=== PATIENT | male | born 1990 | race African-American/Black ===

== ENCOUNTER 2016-12-12 10:24 | Day surgery (SDC) | payer OTHER ==
[~2016-12-12] VITALS: Wt 60.0 kg
[2016-12-12] VITALS (9 sets, daily range): BP systolic 122–142; BP diastolic 73–90; PULSE 82–108; RESP 12–20
[~2016-12-12 10:24] MED LIST: SUCCINYLCHOLINE CHLORIDE 100 MG/5 ML SYG IV ONE
[2016-12-12] MEDS ORDERED: morphine 4 MG/ML VIAL IV STA (10:48)
[2016-12-12] MEDS ORDERED: ONDANSETRON 4 MG INJ IV STA (10:48)
[2016-12-12 11:10] LABS: URINE BLOOD (Dip) POC Negative (NEGATIVE)
[2016-12-12 11:36] LABS: ALBUMIN 4.8 g/dl (3.3-4.9); POTASSIUM 3.6 mmol/L (3.5-5.1)
[2016-12-12 11:38] LABS: CREATININE 0.82 mg/dl (0.61-1.24)
[2016-12-12 11:39] LABS: ALBUMIN/GLOBULIN RATIO 1.23; BASOPHILS % 0.4 % (0.0-2.0); BILIRUBIN,INDIRECT 0.4 mg/dl (0-1.1); BILIRUBIN,TOTAL 0.4 mg/dl (0.2-1.3); CALCIUM 9.7 mg/dl (8.4-10.2); EOSINOPHILS # 0.1 10^3/ul (0.0-0.5); EOSINOPHILS % 1.3 % (0.0-7.0); HEMATOCRIT 46.9 % (42.0-52.0); HEMOGLOBIN 15.8 g/dl (14.0-18.0); LYMPHOCYTES # 1.2 10^3/ul (0.8-2.9); LYMPHOCYTES % 18.6 % (15.0-51.0); MEAN CORPUSCULAR HEMOGLOBIN 29.7 pg (29.0-33.0); MEAN CORPUSCULAR HGB CONC 33.6 g/dl (32.0-37.0); MEAN CORPUSCULAR VOLUME 88.2 fl (82.0-101.0); MEAN PLATELET VOLUME 8.6 fl (7.4-10.4); MONOCYTE # 0.4 10^3/ul (0.3-0.9); NEUTROPHIL # 4.9 10^3/ul (1.6-7.5); NEUTROPHILS % 73.7 % (39.0-77.0); PLATELET COUNT 251 10^3/UL (140-440); RED BLOOD COUNT 5.32 10^6/ul (4.70-6.10); RED CELL DISTRIBUTION WIDTH 12.6 % (11.5-14.5); TOTAL PROTEIN 8.7 g/dl (6.1-8.1); UNCORRECTED WBC 6.7 10^3/ul (4.8-10.8); WHITE BLOOD COUNT 6.7 10^3/ul (4.8-10.8)
[2016-12-12 11:46] LABS: CONDITION 1
--- NOTE | 2016-12-12 12:04 | RADRPT ---
PROCEDURE: US Scrotal CLINICAL INDICATION: Right testicular pain TECHNIQUE: Images were taken during real time interrogation of the scrotum. Color Doppler was also performed. COMPARISON: None FINDINGS: Right Testicle: Is normal in size measuring 4.5 x 2.7 x 2.7 cm No mass is identified. The echotexture is normal. There is lack of vascular flow on color and spectral Doppler within the right testicle. There is a trace right hydrocele. No varicocele is evident. Left testicle: Is normal in size measuring 4.1 x 2.4 x 2.0 cm No mass is identified and The echotexture appears normal. There is normal vascular flow on color Doppler. There is no hydrocele. No varicocele is identified. Right Epidydemus: There is a 5 mm cyst within the right epididymal head. Left Epedidymus: Appears normal. IMPRESSION: 1. Lack of vascular flow within the right testicle is highly suggestive of testicular torsion. Ther e is a trace right hydrocele but the right testicle otherwise appears normal in size with no focal l esion. 2. Normal appearing left testicle. 3. 5 mm cyst seen within the right epididymal head Findings of right testicular torsion were telephoned by Otilio Isaacs MD to MICHAEL Ureña 12/12/2016 at 1200 hours. Physician Kirsty Date Time Electronically viewed and signed by Physician Kirsty on 12/12/2016 12:04 /
--- NOTE | 2016-12-12 12:06 | QN ---
Documentation Comment My independent concise history is right-sided testicle pain since this morning. My pertinent physical exam findings are right sided testicle swelling with horizontal lie and tenderness to palpation. The plan is consultation with the on-call urologist Dr. Bey and admission to the hospital. The patient will likely need surgical intervention. ALEXEY JUAREZ MD Dec 12, 2016 12:06
--- NOTE | 2016-12-12 12:23 | ERA ---
DATE OF SERVICE: 12/12/2016 HISTORY OF PRESENT ILLNESS: The patient is a 26-year-old male complaining of right testicular pain since this morning. Patient states he woke up this morning with some umbilical pain that has been worsening and he has noted some swelling and erythema to his right testicle. He had a torsion as a teenager, his pain feels similar. He has no pain with urination and no history of STDs. No new sexual partners. No penile discharge. No vomiting. PAST MEDICAL HISTORY: Denies any medical problems. ALLERGIES TO MEDICATIONS: DENIES. SURGICAL HISTORY: Denies. SOCIAL HISTORY: Denies. REVIEW OF SYSTEMS: A 12-point review of systems was done. Refer to HPI for positives, all other systems negative. PHYSICAL EXAMINATION: VITAL SIGNS: Temperature is 97, pulse 64, blood pressure is 136/91, respiratory 20, O2 saturation 100% on room air. Pain intensity 9/10. GENERAL: The patient is well-appearing, well-nourished, no acute distress. HEENT: Atraumatic. Conjunctivae are pink. Pupils equal, round, and reactive to light. There is no scleral icterus. Tympanic membranes clear bilaterally. Oropharynx clear. No nystagmus or photophobia. CHEST: Clear to auscultation bilaterally. There are no rales, wheezes or rhonchi. HEART: Regular rate and rhythm. No murmurs, clicks, rubs or gallops. No S3 or S4. ABDOMEN: Soft, nontender and nondistended. Good bowel sounds. No rebound or guarding. No gross peritonitis. No gross organomegaly or masses. No Swan sign or McBurney point tenderness. SKIN: There is no apparent rash or petechia. The skin is warm and dry. GENITOURINARY: Patient has swelling noted to the right testicle with tenderness to palpation. The patient does not have any erythema to the shaft of the penis and no tenderness to palpation of the shaft of the penis. The left testicle is within normal limits, no inguinal lymphadenopathy. EMERGENCY ROOM COURSE: The patient had blood work done in the ER. CBC was within normal limits. CMP was within normal limits. Patient's urine was negative. Patient had a testicular ultrasound in the ER which showed no flow to the right testicle suspicious of torsion. This case was then discussed with Dr. Ma, who will proceed with admission and surgical consult. The patient was aware of the diagnosis and stable at the time of re-evaluation. DIAGNOSIS: Testicular torsion DISPOSITION: Admission for higher level of care and surgical consult. Dictated By: RAJAT RODRIGUEZ for ALEXEY KENDRICK/KAYKAY Conf#: [id number] DID#: [id number] MTDD
[2016-12-12] MEDS ORDERED: HYDROmorphONE 1 MG/ML SYG IV STA (12:44)
[2016-12-12] MEDS ORDERED: NEOSTIGMINE 3 MG/3 ML SYRINGE ONE (12:54)
[2016-12-12] MEDS ORDERED: FENTAnyl 50 MCG/ML VIAL ONE (12:54)
[2016-12-12] MEDS ORDERED: LIDOCAINE 2% (SDV) 5 ML INJ ONE (12:54)
[2016-12-12] MEDS ORDERED: PROPOFOL 20 ML ONE (12:54)
[2016-12-12] MEDS ORDERED: MIDAZOLAM 1 MG/ML 2 ML INJ ONE (12:54)
[2016-12-12] MEDS ORDERED: GLYCOPYRROLATE 1 MG INJ ONE (12:54)
[2016-12-12] MEDS ORDERED: ROCURONIUM 50 MG INJ ONE (12:54)
[2016-12-12] MEDS ORDERED: ACETAMINOPHEN 325 MG TAB PO PRN ×2 (13:00→14:00)
[2016-12-12] MEDS ORDERED: ONDANSETRON 4 MG INJ IV PRN ×3 (13:00→15:00)
[2016-12-12] MEDS ORDERED: D5W-0.45 NACL + KCL 20 MEQ 1,000 ML IV SCH (13:55)
[2016-12-12] MEDS ORDERED: MAGNESIUM HYDROXIDE 30ML CUP PO PRN (14:00)
[2016-12-12] MEDS ORDERED: HYDROCODONE/APAP (5/325) TAB PO PRN (14:00)
[2016-12-12] MEDS ORDERED: NACL 0.9% 3 ML SYG IV SCH (14:00)
[2016-12-12] MEDS ORDERED: morphine 2 MG INJ IV PRN (14:00)
[2016-12-12] MEDS ORDERED: BISACODYL (EC) 5 MG TAB PO PRN (14:00)
[2016-12-12] MEDS ORDERED: BUPIVACAINE 0.5% (SDV) 30 ML INJ ONE (14:20)
[2016-12-12] MEDS ORDERED: MEPERIDINE 25 MG INJ ONE (14:56)
[2016-12-12] MEDS ORDERED: DIPHENHYDRAMINE 50 MG INJ IV PRN (15:00)
[2016-12-12] MEDS ORDERED: HYDROmorphONE (0.2 MG/ML) 10ML SYG IV PRN ×2 (15:00)
[2016-12-12] MEDS ORDERED: OXYCODONE/ACETAMINOPHEN (5/325) TAB PO PRN (15:00)
[2016-12-12] MEDS ORDERED: morphine (1 MG/ML) 10ML SYRINGE IV PRN ×2 (15:00)
[2016-12-12] MEDS ORDERED: FENTAnyl 50 MCG/ML VIAL IV PRN (15:00)
[2016-12-12] MEDS ORDERED: MEPERIDINE 25 MG INJ IV PRN (15:00)
--- NOTE | 2016-12-12 15:00 | HP ---
DATE OF ADMISSION: 12/12/2016 TIME OF EVALUATION: 1300. REASON FOR ADMISSION: Sudden onset of right testicular pain. CONSULTATIONS: Dr. Raj Bey, Urology. HISTORY OF PRESENT ILLNESS: This is a 26-year-old male who denies any significant past medical history other than a history of testicular torsion as a teenager that was resolved nonsurgically, who came to the emergency room with a chief complaint of sudden onset of right testicular pain since the morning of 12/12/2016. The patient verbalized that he woke up from sleep feeling pain in the right testicle. The patient has also noticed some swelling and erythema to his right testicle. The patient had no pain with urination. The patient had no penile discharge. He denied any vomiting, nausea, abdominal pain or fevers. The patient denied any urinary or bowel irregularities. In the emergency room, the patient underwent a testicular ultrasound that showed lack of vascular flow within the right testicle, highly suggesting testicular torsion. Hence, the on-call urology was already involved in the patient's care. The patient was treated with IV analgesics in the emergency room. PAST MEDICAL HISTORY: Denies. PAST SURGICAL HISTORY: Denies. HOME MEDICATIONS: None. ALLERGIES: NO KNOWN DRUG ALLERGIES. SOCIAL HISTORY: The patient lives at home. Denies any use of tobacco, alcohol or illicit drug use. The patient is currently working. REVIEW OF SYSTEMS: A 12-point review of systems were made and review of systems are negative other than what is mentioned in history of present illness. PHYSICAL EXAMINATION: VITAL SIGNS: Temperature 97.0, pulse is 79, respiratory rate 20, blood pressure 112/67, oxygen saturation 99% on room air. GENERAL: This is a well-built, well-nourished male patient lying in bed in no apparent distress. HEENT: Head normocephalic and atraumatic. Eyes: Anicteric sclerae. Conjunctivae clear. ENT: Nasal septum is midline. Oral mucosa is dry. NECK: Supple. No JVD noticed. RESPIRATORY: Bilaterally clear to auscultation. No adventitious breath sounds heard. No use of accessory muscles of respiration. CARDIAC: Regular rate and rhythm. No murmurs. GASTROINTESTINAL: Abdomen soft, nontender and nondistended. Bowel sounds positive in all 4 quadrants. GENITOURINARY: Right testicular edema with tenderness on palpation. Circumcised penis with no penile lesions or secretions. Left testicle within normal limits. EXTREMITIES: No cyanosis, no clubbing, no edema. Peripheral pulses are palpable. NEUROLOGIC: The patient is awake, alert and oriented. Cranial nerves are grossly intact. LABORATORY AND DIAGNOSTIC DATA: WBC 6.7, hemoglobin 15.8, hematocrit 46.9, platelet count 251. Sodium 144, potassium 3.6, chloride 99, carbon dioxide 20, anion gap 20. BUN 11, creatinine 0.8, glucose 122, calcium 9.7, AST 28, ALT 25 , alkaline phosphatase 100, total protein 8.7, albumin 4.8, lipase 94. Urinalysis: Urine ketones 1+, urine leukocyte esterase negative, urine protein trace. TESTICULAR ULTRASOUND: Lack of vascular flow within the right testicle, hydrocele, history of testicular torsion. There is trace hydrocele, but the right testicle otherwise appears normal in size with a nonfocal lesion. Normal appearing left testicle. IMPRESSION: This is a 26-year-old male who came to the emergency room with chief complaint of right testicular pain and swelling, who was found to have sonographic evidence of testicular torsion, who will be admitted here for further treatment and evaluation. ASSESSMENT AND PLAN: 1. Right testicular pain. Sonographic evidence of testicular torsion. The patient will be provided with adequate pain control. The patient will be put n.p.o. Urology consultation was obtained. The patient most likely requires emergent surgical intervention. Plan. The patient will be admitted to inpatient medical/surgical floor. The patient will be kept n.p.o. except for medications. The patient will be started on DVT prophylaxis and gastrointestinal prophylaxis. The patient will remain a FULL CODE. The rest of the patient's management will be based on the clinical course, the results of diagnostic studies, and inputs from the consultants. Based on the patient's clinical presentation, he most probably requires at least one midnight's stay for further management and evaluation of his clinical presentation. The case and management of this patient was fully discussed with Dr. Jain. Approximately 40 minutes was spent on the history and physical of this patient. ROSA MARIA JAIN MD AM/NTS Conf#: [id number] DID#: [id number] [facility]
[2016-12-12] MEDS ORDERED: HYDROCODONE/APAP (10/325) TAB PO PRN (15:30)
[2016-12-12] MEDS ORDERED: morphine 10 MG INJ IV PRN (15:30)
[2016-12-12] MEDS ORDERED: ONDANSETRON 4 MG INJ IV SCH (18:00)
[2016-12-12] MEDS ORDERED: FAMOTIDINE 20 MG INJ IV SCH (21:00)
--- NOTE | 2016-12-13 10:03 | DS ---
DATE OF ADMISSION: 12/12/2016 DATE OF DISCHARGE: 12/12/2016 FINAL DIAGNOSIS: Right testicular torsion. Status post orchiopexy. CONSULTANTS: Raj Bey MD, urology. HOSPITAL COURSE: This is a 26-year-old male who denies any significant past medical history other than a history of testicular torsion as a teenager that was resolved nonsurgically, who came to the emergency room with chief complaint of sudden onset of right testicular pain since the morning of 12/12/2016. The patient verbalized that he woke from sleep feeling pain in the right testicle. The patient also noticed some swelling and erythema in his right testicle. The patient had no pain with urination. The patient denied any penile discharge. The patient denied any nausea, vomiting, abdominal pain or fevers. The patient denied any urinary or bowel irregularities. In the emergency room, the patient underwent a testicular ultrasound that showed lack of vascular flow within the right testicle, highly suggesting testicular torsion. Hence, on-call urology was consulted. The patient was emergently taken to the operating room, and the patient underwent bilateral orchiopexy. Postoperatively, the patient was extubated and the patient was recovered in the postanesthesia care unit. The patient had no immediate postoperative complications. The patient was discharged by the urologist directly from PACU with appropriate analgesics. DISCHARGE DISPOSITION/PLAN: The patient was discharged home by the urologist. All the discharge instructions were given by the urologist. CONDITION AT DISCHARGE: Stable. DISCHARGE MEDICATIONS: As per urology. PERTINENT LABORATORY AND DIAGNOSTIC DATA AND PROCEDURES: 1. Bilateral orchiopexy. 2. Testicular ultrasound. Lack of vascular flow within the right testicle, highly suggestive of testicular torsion. There is a trace right hydrocele, but the right testicle otherwise appears normal in size with no focal lesion. Normal appearing left testicle. A 5 mm cyst is seen within the right epididymal head. 3. CBC: WBC 6.7, hemoglobin 15.8, hematocrit 46.9, platelet count 251. 4. BMP: Sodium 144, potassium 3.6, chloride 99, carbon dioxide 29, anion gap 20, BUN 11, creatinine 0.82, glucose 122, calcium 9.7. AST 28, ALT 27, alkaline phosphatase 100, total protein 8.7, albumin 4.8, lipase 74. At this time, I would like to thank Dr. Bey for seeing the patient, doing the necessary procedures, and providing clinical recommendations. The case and management of this patient was fully discussed with Dr. Jain. ROSA MARIA JAIN MD, AM/KAYKAY Conf#: [id number] DID#: [id number] MTDD
--- NOTE | 2017-01-01 20:50 | OPR ---
DATE OF OPERATION: 12/12/2016 PREOPERATIVE DIAGNOSIS: Right testicular torsion. POSTOPERATIVE DIAGNOSIS: Right testicular torsion. OPERATION PERFORMED: Reduction of right testicular torsion and bilateral orchiopexy. ANESTHESIA: General. OPERATING SURGEON: Dr. Shelly Bey. DESCRIPTION OF PROCEDURE: The patient was taken to the operating room. After smooth induction of a nesthesia, he was prepped and draped in sterile fashion, placed in the supine position. A transvers e incision was made in the right hemiscrotum and there was a 360 degree torsion observed. The testi tete was then detorsed and wrapped in a hot trap towel to allow it to sit and pink up. Attention was turned to the left hemiscrotum where a transverse incision was made and an orchidopexy was done wit h fixation of the left testicle in 3 areas. The skin was closed with interrupted chromic. Attentio n was then paid to the right testicle, which appeared to be pink and totally salvageable. This was replaced in the hemiscrotum and it was then pexed to the dartos in a similar fashion as the left bobby ticle. The skin was closed. Sterile dressings were applied. The patient tolerated the procedure w ell and left the OR in good condition. Dictated By: SHELLY LEBRON/KAYKAY Conf#: [id number] DID#: [id number]
== END 2016-12-12 17:02 | disposition home or self-care (01) ==
LOC: FTE 10:24 → SDS 13:00
PROVIDERS: ATTEND Urology
DX: N44.00 Torsion of testis, unspecified (principal)
CPT/HCPCS: 36415; 54600; 76870; 80053; 81003; 83690; 85025; 96374; 96375; J0330; J1170; J2175; J2250; J2270; J2405; J2710; J3010; Z7502; Z7512; Z7610

== ENCOUNTER 2017-11-28 10:28 | Emergency (ER) | END 2017-11-28 13:46 | disposition home or self-care (01) ==

== ENCOUNTER 2019-01-26 02:00 | Inpatient (IN) | payer OTHER ==
[~2019-01-26] VITALS: Ht 172.7 cm; Wt 54.4 kg
[~2019-01-26 02:00] MED LIST changes: +HYDR-4011 PO; +IBUP800T48 PO; -SUCCINYLCHOLINE CHLORIDE 100 MG/5 ML SYG IV ONE
[2019-01-26 02:03] VITALS: Ht 172.7 cm; Wt 54.4 kg
[2019-01-26] MEDS ORDERED: HYDROCODONE/APAP (10/325) TAB PO ONE (02:30)
[2019-01-26] MEDS ORDERED: SOD CHLORIDE 0.9% 1,000 ML IV STA (03:00)
[2019-01-26] MEDS ORDERED: morphine 4 MG/ML VIAL IV STA (03:00)
[2019-01-26] MEDS ORDERED: ONDANSETRON 4 MG INJ IV STA (03:00)
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
[2019-01-26] MEDS ORDERED: BISACODYL (EC) 5 MG TAB PO PRN (03:30)
[2019-01-26] MEDS ORDERED: DOCUSATE SODIUM 100 MG CAP PO PRN (03:30)
[2019-01-26] MEDS ORDERED: ACETAMINOPHEN 325 MG TAB PO PRN (03:30)
[2019-01-26] MEDS ORDERED: ONDANSETRON 4 MG INJ IV PRN (03:30)
[2019-01-26] MEDS ORDERED: HYDROCODONE/APAP (5/325) TAB PO PRN (03:30)
[2019-01-26] MEDS ORDERED: NACL 0.9% 3 ML SYG IV SCH (03:30)
[2019-01-26] MEDS: SOD CHLORIDE 0.9% 1,000 ML IV SCH ×3 (04:12→23:08)
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
[2019-01-26 05:04] VITALS: BP 137/74; PULSE 86; RESP 18
[2019-01-26] MEDS: morphine 2 MG INJ IV PRN ×4 (06:53→21:40)
[2019-01-26 08:29] VITALS: BP 131/73; PULSE 76; RESP 18
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
--- NOTE | 2019-01-26 13:09 | RADRPT ---
Vent Rate: 68 bpm RR Interval: 0 msec NE Interval: 144 msec QRS Duration: 104 msec QT Interval: 380 msec QTC Interval: 404 msec P-R-T [place]: 68 - 81 - 74 degrees Normal sinus rhythm Incomplete right bundle branch block Borderline ECG Electronically Signed By: Hamilton Holliday
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
[2019-01-26] MEDS ORDERED: NEOMYC/POLYMYX/BACIT 0.9 GM OINT ONE (14:28)
--- NOTE | 2019-01-26 16:57 | PREAC ---
Date/Time of Note Date/Time of Note DATE: 01/26/19 TIME: 16:56 Anesthesia Eval and Record Evaluation Time Pre-Procedure Interview DATE: 01/26/19 TIME: 16:56 Age 28 Sex male NPO: 8 hrs Preoperative diagnosis LEFT RADIAL SHAFT FRACTURE, Planned procedure ORIF LEFT RADIAL SHAFT FRACTURE, PINNING Past Medical History Past Medical History: None Surgery & Anesthesia Issues No known issue Meds Anticoagulation: No Beta Silverio within 24 hr: No Reason Beta Silverio not given: Pt. not on B-Silverio Active Scripts Hydrocodone/Acetaminophen ([place] 5-325 Tablet) 1 Each Tablet, 1 TAB PO Q6H PRN for PAIN, #7 TAB Prov:LEKKOS,APOSTOLOS A. DO 11/28/17 Ibuprofen* (Motrin*) 800 Mg Tab, 800 MG PO Q6H PRN for PAIN AND OR ELEVATED TEMP, #30 TAB Prov:LEKKOS,APOSTOLOS A. DO 11/28/17 Current Medications Sodium Chloride 1,000 ml @ 100 mls/hr Q10H IV Last administered on 01/26/19at 13:55; Admin Dose 100 MLS/HR; Start 01/26/19 at 03:09 IV Flush (NS 3 ml) 3 ml PER PROTOCOL IV ; Start 01/26/19 at 03:30 Ondansetron HCl (Zofran Inj) 4 mg Q6H PRN IV NAUSEA/VOMITING; Start 01/26/19 at 03:30 Acetaminophen (Tylenol Tab) 650 mg Q6H PRN PO .PAIN 1-3 OR TEMP; Start 01/26/19 at 03:30 Acetaminophen/ Hydrocodone Bitart ([place] (5/325)) 1 tab Q6H PRN PO .MOD PAIN 4- 6; Start 01/26/19 at 03:30 Morphine Sulfate (morphine) 2 mg Q4H PRN IV .SEVERE PAIN 7-10 Last administered on 01/26/19at 15:58; Admin Dose 2 MG; Start 01/26/19 at 03:30 Docusate Sodium (Colace) 100 mg Q12H PRN PO .CONSTIPATION; Start 01/26/19 at 03:30 Bisacodyl (Dulcolax) 5 mg DAILY PRN PO .CONSTIPATION; Start 01/26/19 at 03:30 Meds reviewed: Yes Allergies Coded Allergies: No Known Allergy (Unverified , 11/28/17) Allergies Reviewed: Yes Labs/Studies Labs Reviewed: Reviewed by anesthesiologist Result Diagram: 01/26/19 0307 01/26/19 0307 Laboratory Tests 01/26/19 03:07 test: N/A Studies: ECG Pre-procedure Exam Last vitals Vital Signs Date Temp Pulse Resp B/P (MAP) Pulse Ox O2 O2 Flow FiO2 Time Delivery Rate 01/26/19 98.2 76 18 131/73 99 Room Air 08:29 (92) Airway: Adequate mouth opening Mallampati: Mallampati I Teeth: Normal Lung: Normal Heart: Normal ASA Physical Status ASA physical status: 1 Emergency: None Planned Anesthetic General/MAC: ETT Pre-operative Attestations Prior to commencing anesthesia and surgery, the patient was re-evaluated, there was verification of: *The patient's identity *The results of appropriate recent lab work and preoperative vital signs *The above evaluation not changing prior to induction *Anesthetic plan, risk benefits, alternative and complications discussed with patient/family; questions answered; patient/family understands, accepts and wishes to proceed. FANTASMA COELLO Jan 26, 2019 16:57
[2019-01-26 20:09] VITALS: BP 144/87; PULSE 85; RESP 18
[2019-01-27] VITALS (25 sets, daily range): BP systolic 119–164; BP diastolic 49–102; PULSE 78–94; RESP 11–20
[2019-01-27] MEDS: SOD CHLORIDE 0.9% 1,000 ML IV SCH ×3 (02:13→17:37)
[2019-01-27] MEDS: morphine 2 MG INJ IV PRN ×3 (04:47→20:16)
[2019-01-27] MEDS ORDERED: ACETAMINOPHEN 500 MG TAB PO ONE (07:00)
[2019-01-27] MEDS ORDERED: ROCURONIUM 50 MG INJ ONE (07:00)
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
[2019-01-27] MEDS ORDERED: hydrALAzine 20 MG INJ IV PRN (11:00)
[2019-01-27] MEDS ORDERED: POLYMYXIN/BACITRACIN 1L IRRIG ONE (12:27)
[2019-01-27] MEDS ORDERED: PROPOFOL 20 ML ONE (12:29)
[2019-01-27] MEDS ORDERED: MIDAZOLAM 1 MG/ML 2 ML INJ ONE (12:30)
[2019-01-27] MEDS ORDERED: ONDANSETRON 4 MG INJ ONE (12:30)
[2019-01-27] MEDS ORDERED: FENTAnyl 50 MCG/ML VIAL ONE ×2 (12:30→15:00)
[2019-01-27] MEDS ORDERED: FAMOTIDINE 20 MG INJ ONE (12:30)
[2019-01-27] MEDS ORDERED: ROPIVACAINE 0.5 % 30 ML VIAL ONE (12:36)
--- NOTE | 2019-01-27 16:00 | HPN ---
Date/Time of Note Date/Time of Note DATE: 01/27/19 TIME: 15:59 Interval H&P Admission Note Pt. seen H&P reviewed: No system changes MADELINE HOOD MD Jan 27, 2019 16:00
--- NOTE | 2019-01-27 16:05 | PAC ---
Date/Time of Note Date/Time of Note DATE: 01/27/19 TIME: 16:05 Post-Anesthesia Notes Post-Anesthesia Note Last documented vital signs Vital Signs Date Temp Pulse Resp B/P (MAP) Pulse Ox O2 O2 Flow FiO2 Time Delivery Rate 01/27/19 98.2 79 18 136/102 98 11:30 (113) 01/26/19 Room Air 08:29 Activity: WNL Respiratory function: WNL Cardiovascular function: WNL Mental status: Baseline Pain reasonably controlled: Yes Hydration appropriate: Yes Nausea/Vomiting absent: Yes FANTASMA COELLO Jan 27, 2019 16:05
--- NOTE | 2019-01-27 16:21 | SIPON ---
Date/Time of Note Date/Time of Note DATE: 01/27/19 TIME: 16:01 Operative Report Preoperative Diagnosis [place] fracture ofleft forearm Postoperative Diagnosis same Operation/Procedure Performed 1) O.R.I.F. of distal shaft fracture of left radius 2)closed reduction of dislocaterd distal radioulnal joint and immobilization in a splint Surgeon see signature line executive assistant none Anesthesia: general Estimated blood loss: 10 - 50 ml's Transfusion Required none Specimen none Grafts/Implants plate and screws Complications none MADELINE HOOD MD Jan 27, 2019 16:13
[2019-01-27] MEDS ORDERED: SOD CHLORIDE 0.9% 1,000 ML IV SCH (16:22)
[2019-01-27] MEDS ORDERED: NACL 0.9% 3 ML SYG IV SCH (16:30)
[2019-01-27] MEDS: CEFAZOLIN 1 GM/50 ML (PMX) 50 ML IVPB SCH (20:19)
[2019-01-28] MEDS: morphine 2 MG INJ IV PRN ×2 (02:46→08:45)
[2019-01-28] MEDS: HYDROCODONE/APAP (5/325) TAB PO PRN ×3 (04:37→12:48)
[2019-01-28] MEDS: CEFAZOLIN 1 GM/50 ML (PMX) 50 ML IVPB SCH ×2 (04:38→12:34)
[2019-01-28] MEDS: SOD CHLORIDE 0.9% 1,000 ML IV SCH (05:09)
[2019-01-28 08:02] VITALS: BP 142/88; PULSE 76; RESP 18
[2019-01-28] MEDS ORDERED: ASPIRIN (EC) 325 MG TAB PO SCH (09:00)
--- NOTE | 2019-01-28 11:20 | PDOCDIS ---
Discharge Instructions CONDITION [id number] Patient Condition: Mfsfr1l Stable HOME CARE INSTRUCTIONS: [id number] Diet Instructions: Ytkbh8s Regular ACTIVITY: [id number] Activity Restrictions: Hbvcz6h Slowly Increase Activity Rest between Activity Avoid heavy lifting Feqed9Lh Bathing Restrictions: Juebs2b Shower Liqia0Xr Activity Restrictions Tgluw5d WATERPROOF SURGICAL SITE/ DO Comment: NOT GET SPLINT WET FOLLOW UP/APPOINTMENTS Follow-up Plan Please take your medications as prescribed, see your doctor in the clinic in the next 1-2 weeks. ARIANA CHAUDHARI Jan 28, 2019 11:20
[2019-01-28] MEDS ORDERED: HYDR-4011 PO (11:22)
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
[2019-01-28 14:01] VITALS: BP 132/79; PULSE 81; RESP 18
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
== END 2019-01-28 14:58 | disposition home or self-care (01) | DRG 512 ==
LOC: E/R 02:00 → MS1 03:31
PROVIDERS: ADMIT Family Medicine; ATTEND Hospitalist
PROC: 0PSJ04Z Reposition Left Radius with Internal Fixation Device, Open Approach (ICD-10-PCS; principal; 2019-01-28)
PROC: 0RSPXZZ Reposition Left Wrist Joint, External Approach (ICD-10-PCS; 2019-01-28)
DX: S52.372A Galeazzi's fracture of left radius, initial encounter for closed fracture (principal); S52.612A Displaced fracture of left ulna styloid process, initial encounter for closed fracture; S00.83XA Contusion of other part of head, initial encounter; V49.40XA Driver injured in collision with unspecified motor vehicles in traffic accident, initial encounter; Y92.410 Unspecified street and highway as the place of occurrence of the external cause
CPT/HCPCS: 36415; 70450; 70480; 72125; 73090; 73100; 80053; 80307; 83036; 83690; 85025; 85610; 85730; 93005; 96374; 96375; C1713; J0690; J2250; J2270; J2405; J2795; J3010; J7030